=== PATIENT | male | born 1995 | race Caucasian/White ===

== ENCOUNTER 2017-04-30 21:34 | Emergency (ER) | payer OTHER ==
[~2017-04-30] VITALS: Ht 170.2 cm; Wt 79.0 kg
[2017-04-30 21:38] VITALS: Ht 170.2 cm; Wt 79.0 kg
[2017-04-30] MEDS ORDERED: morphine 2 MG INJ IV STA (22:01)
[2017-04-30] MEDS ORDERED: SOD CHLORIDE 0.9% 1,000 ML IV STA (22:01)
[2017-04-30] MEDS ORDERED: ONDANSETRON 4 MG INJ IV STA (22:01)
[2017-04-30 22:47] LABS: BASOPHIL # 0.1 10^3/ul (0.0-0.1); BASOPHILS % 0.4 % (0.0-2.0); EOSINOPHILS # 0.1 10^3/ul (0.0-0.5); EOSINOPHILS % 0.9 % (0.0-7.0); HEMOGLOBIN 14.6 g/dl (14.0-18.0); LYMPHOCYTES # 2.6 10^3/ul (0.8-2.9); LYMPHOCYTES % 17.6 % (18.0-55.0); MEAN CORPUSCULAR HEMOGLOBIN 27.1 pg (29.0-33.0); MEAN CORPUSCULAR VOLUME 79.9 fl (72.0-104.0); MEAN PLATELET VOLUME 12.1 fl (7.4-10.4); MONOCYTE # 1.4 10^3/ul (0.3-0.9); MONOCYTES % 9.5 % (0.0-13.0); NEUTROPHIL # 10.3 10^3/ul (1.6-7.5); NEUTROPHILS % 69.5 % (30.0-74.0); PLATELET COUNT 248 10^3/UL (140-415); RED BLOOD COUNT 5.38 10^6/ul (4.70-6.10); WHITE BLOOD COUNT 14.9 10^3/ul (4.8-10.8)
[2017-04-30 22:56] LABS: ADD UMIC YES; UR ASCORBIC ACID NEGATIVE (NEGATIVE); UR BACTERIA FEW /HPF (NONE SEEN); UR BILIRUBIN (Dip) NEGATIVE (NEGATIVE); UR BLOOD (Dip) NEGATIVE (NEGATIVE); UR CLARITY CLOUDY (CLEAR); UR COLOR YELLOW (YELLOW); UR GLUCOSE (Dip) NEGATIVE (NEGATIVE); UR KETONES (Dip) NEGATIVE (NEGATIVE); UR LEUKOCYTE ESTERASE (Dip) NEGATIVE Leu/ul (NEGATIVE); UR NITRITE (Dip) NEGATIVE (NEGATIVE); UR RBC 1 /HPF (0-5); UR SPECIFIC GRAVITY (Dip) 1.016 (1.003-1.030); UR TOTAL PROTEIN (Dip) NEGATIVE (NEGATIVE); UR UROBILINOGEN (Dip) NEGATIVE (NEGATIVE)
[2017-04-30 23:04] LABS: ALBUMIN 4.5 g/dl (3.3-4.9); ALBUMIN/GLOBULIN RATIO 1.21; BILIRUBIN,INDIRECT 0.6 mg/dl (0-1.1); BILIRUBIN,TOTAL 0.6 mg/dl (0.2-1.3); CALCIUM 9.5 mg/dl (8.4-10.2); CREATININE 0.86 mg/dl (0.61-1.24); POTASSIUM 3.4 mmol/L (3.5-5.1); TOTAL PROTEIN 8.2 g/dl (6.1-8.1)
[2017-04-30] MEDS ORDERED: morphine 4 MG/ML VIAL IV STA (23:12)
--- NOTE | 2017-04-30 23:36 | RADRPT ---
PROCEDURE: Ultrasound of the abdomen. CLINICAL INDICATION: Right upper quadrant pain. TECHNIQUE: Sonographic images of the abdomen were performed. COMPARISON: No pertinent prior examinations were submitted for comparison. FINDINGS: Liver: The liver is normal in echogencity and size measuring approximately 15.1 cm. The hepatic vei ns and portal veins are patent with appropriate directional flow. No intrahepatic ductal dilatation is seen. Gallbladder: The gallbladder is not distended and has normal wall thickness. No pericholecystic flu id or gallstones are visualized. The common duct measures 2.6 mm. Pancreas: There is limited evaluation of the pancreatic body and tail. The visualized portions of the pancreas are unremarkable. Kidneys: The right kidney measures 10 x 5.1 x 6.7 cm. There is normal corticomedullary differentiat ion. There is no evidence of renal calculus or hydronephrosis. IVC: The visualized portion of the inferior vena cava is unremarkable. Aorta: Normal in size. Free fluid: None. IMPRESSION: Unremarkable right upper quadrant ultrasound. RPTAT: HIKT .Arcadio Andrade MD, Date Time Electronically viewed and signed by .Arcadio Andrade MD, on 04/30/2017 23:35 .T/
--- NOTE | 2017-04-30 23:51 | RADRPT ---
PROCEDURE: XR Abdomen. CLINICAL INDICATION: Abdominal pain. TECHNIQUE: AP abdomen x-ray. COMPARISON: There are no similar studies submitted for comparison. FINDINGS: There is no evidence of bowel obstruction.There are no definite densities overlying the kidneys and ureters. IMPRESSION: No evidence of bowel obstruction. RPTAT: HIKT .Arcadio Andrade MD, MD Date Time Electronically viewed and signed by .Arcadio Andrade MD, MD on 04/30/2017 23:51 .T/
[2017-04-30] MEDS ORDERED: IBUP-1542 PO (23:58)
[2017-04-30] MEDS ORDERED: HYDR-906 PO (23:58)
[2017-04-30] MEDS ORDERED: DOCU-144 PO (23:58)
[2017-04-30] MEDS ORDERED: METR500T PO (23:58)
--- NOTE | 2017-05-01 00:02 | ERD ---
ER Documentation Chief Complaint Date/Time DATE: 05/01/17 TIME: 00:00 Chief Complaint abdominal pain x 6 days. also c/o vomiting/diarrhea HPI Patient is a 21-year-old male who presents complaining of 6 days of generalized abdominal pain worse on the right side. He states he has had a fever at home. He admits to nausea and vomiting. Denies any dysuria hematuria or increased urinary frequency. Pain is worse after eating. He states he has had intermittent constipation but also diarrhea. Last bowel movement was today and it was nonbloody. ROS All systems reviewed and are negative except as per history of present illness. Medications Home Meds Active Scripts Hydrocodone/Acetaminophen ([place] 5-325 Tablet) 1 Each Tablet, 1 TAB PO Q6H Y for PAIN, #20 TAB Prov:DENNIS SCRUGGS PA-C 04/30/17 Ibuprofen* (Motrin*) 600 Mg Tab, 600 MG PO Q6, #30 TAB Prov:DENNIS SRCUGGS PA-C 04/30/17 Metronidazole* (Flagyl*) 500 Mg Tablet, 500 MG PO TID for 7 Days, TAB Prov:DENNIS SCRUGGS PA-C 04/30/17 Docusate Sodium* (Colace*) 100 Mg Capsule, 100 MG PO TID, #30 CAP Prov:DENNIS SCRUGGS PA-C 04/30/17 Allergies Allergies: Coded Allergies: No Known Allergy (Unverified , 04/30/17) PMhx/Soc History of Surgery: No Anesthesia Reaction: No Hx Neurological Disorder: No Hx Respiratory Disorders: No Hx Cardiac Disorders: No Hx Psychiatric Problems: No Hx Miscellaneous Medical Probl: No Hx Alcohol Use: No Hx Substance Use: No Hx Tobacco Use: No (BUT ADMITS SOMETIMES SMOKES MARIJUANA WHEN UPSET.) Smoking Status: Never smoker FmHx Family History: No diabetes Physical Exam Vitals Vital Signs Date Time Temp Pulse Resp B/P Pulse Ox O2 Delivery O2 Flow Rate FiO2 04/30/17 21:38 98.7 84 20 142/80 99 Physical Exam General: well developed, well nourished, alert, nontoxic, no distress Head: normocephalic, atraumatic Eyes: PERRL, normal conjunctiva Neck: Supple, nontender, no lymphadenopathy, no midline tenderness Respiratory: Clear to auscaultation bilaterally, speaks in full sentences, no use of accesory muscles or labored breathing, no rales, ronchi, or wheezing Cardiovascular: RRR, No murmurs GI: soft, non distended, positive murphys sign, negative mcburneys point tenderness, no cva tenderness bilaterally, no rebound or guarding Back: no midline tenderness, no step offs or bony abnormalities, sensation to light touch in tact Result Diagram: 04/30/17221704/30/172217 Results 24 hrs Laboratory Tests Test 04/30/17 22:18 White Blood Count 14.910^3/ul Red Blood Count 5.3810^6/ul Hemoglobin 14.6g/dl Hematocrit 43.0% Mean Corpuscular Volume 79.9fl Mean Corpuscular Hemoglobin 27.1pg Mean Corpuscular Hemoglobin Concent 34.0g/dl Red Cell Distribution Width 14.0% Platelet Count 65654^3/UL Mean Platelet Volume 12.1fl Neutrophils % 69.5% Lymphocytes % 17.6% Monocytes % 9.5% Eosinophils % 0.9% Basophils % 0.4% Nucleated Red Blood Cells % 0.0/100WBC Neutrophils # 10.310^3/ul Lymphocytes # 2.610^3/ul Monocytes # 1.410^3/ul Eosinophils # 0.110^3/ul Basophils # 0.110^3/ul Nucleated Red Blood Cells # 0.010^3/ul Urine Color YELLOW Urine Clarity CLOUDY Urine pH 8.0 Urine Specific [place] 1.016 Urine Ketones NEGATIVEmg/dL Urine Nitrite NEGATIVEmg/dL Urine Bilirubin NEGATIVEmg/dL Urine Urobilinogen NEGATIVEmg/dL Urine Leukocyte Esterase NEGATIVELeu/ul Urine Microscopic RBC 1/HPF Urine Microscopic WBC 1/HPF Urine Bacteria FEW/HPF Urine Hemoglobin NEGATIVEmg/dL Urine Glucose NEGATIVEmg/dL Urine Total Protein NEGATIVEmg/dl Sodium Level 140mmol/L Potassium Level 3.4mmol/L Chloride Level 95mmol/L Carbon Dioxide Level 28mmol/L Anion Gap 20 Blood Urea Nitrogen 11mg/dl Creatinine 0.86mg/dl Glucose Level 106mg/dl Calcium Level 9.5mg/dl Total Bilirubin 0.6mg/dl Direct Bilirubin 0.00mg/dl Indirect Bilirubin 0.6mg/dl Aspartate Amino Transf (AST/SGOT) 82IU/L Alanine Aminotransferase (ALT/SGPT) 162IU/L Alkaline Phosphatase 243IU/L Total Protein 8.2g/dl Albumin 4.5g/dl Globulin 3.70g/dl Albumin/Globulin Ratio 1.21 Lipase 194U/L Current Medications Medications (Trade) Dose Ordered Sig/Tamra Route PRN Reason Start Time Stop Time Status Last Admin Dose Admin Sodium Chloride (NS) 1,000 ml @ 1,000 mls/hr Q1H STAT IV 04/30/17 22:01 04/30/17 23:00 DC 04/30/17 22:28 Morphine Sulfate (morphine) 2 mg ONCE STAT IV 04/30/17 22:01 04/30/17 22:03 DC 04/30/17 22:28 Ondansetron HCl (Zofran Inj) 4 mg ONCE STAT IV 04/30/17 22:01 04/30/17 22:03 DC 04/30/17 22:28 Morphine Sulfate (morphine) 4 mg ONCE STAT IV 04/30/17 23:12 04/30/17 23:13 DC 04/30/17 23:20 Procedures/MDM Patient has generalized abdominal pain. He has mildly elevated blood pressure 142/80 otherwise vital signs are normal. He does have some right upper quadrant tenderness I order gallbladder ultrasound which is negative. KUB also shows no evidence of obstruction. Labs have elevated white blood cell count and elevated liver enzymes. I reviewed all the findings with Dr. Post who stated that the patient is suitable for outpatient management and recommended I put the patient on Flagyl which I did I also gave prescription for Colace, ibuprofen, and [place]. He was given copies of all of his labs so he can follow- up with primary care. Recommended this patient follow up with her primary care doctor within 48 hours or return to the emergency room for any worsening of symptoms. However this time I do believe there is suitable for outpatient management. I answered all their questions and they agreed with the plan and were discharged home. Departure Diagnosis: Primary Impression: Abdominal pain Condition: Stable Patient Instructions: Abdominal Pain Additional Instructions: Call your primary care doctor TOMORROW for an appointment during the next 1-2 days.See the doctor sooner or return here if your condition worsens before your appointment time. DENNIS SCRUGGS PA-C May 01, 2017 00:02
[2017-05-01 00:18] VITALS: BP 123/64; PULSE 87; RESP 18; TEMP 99
== END 2017-05-01 00:21 | disposition home or self-care (01) ==
LOC: FTE 21:34
DX: R10.84 Generalized abdominal pain (principal); R11.2 Nausea with vomiting, unspecified
CPT/HCPCS: 74000; 76705; 80053; 81001; 83690; 85025; J2270; J2405; J7030; 36415; 96374; 96375; 96376